=== PATIENT | male | born 1995 | race Two or more races ===

== ENCOUNTER 2021-03-29 03:22 | Emergency (ER) | payer SELFPAY ==
[~2021-03-29] VITALS: Ht 170.2 cm; Wt 69.9 kg
[2021-03-29] MEDS ORDERED: LIDOCAINE 1% HCL (LOCAL ANESTH.) INJ 20ML MDV IJ ONE (07:30)
[2021-03-29 07:40] VITALS: BP 138/78
== END 2021-03-29 07:55 | disposition home or self-care (01) ==
LOC: ER 03:22
DX: S61.217A Laceration without foreign body of left little finger without damage to nail, initial encounter (principal); W26.0XXA Contact with knife, initial encounter; Y93.89 Activity, other specified; Y92.89 Other specified places as the place of occurrence of the external cause; Y99.8 Other external cause status
CPT/HCPCS: 12001